=== PATIENT | male | born 1960 | race Caucasian/White ===

== ENCOUNTER 2019-03-20 11:23 | Emergency (ER) | payer OTHER ==
[~2019-03-20] VITALS: Ht 162.6 cm; Wt 105.2 kg
--- NOTE | 2019-03-20 11:23 | NUR ---
ARRIVAL PT ARRIVED VIA STRETCHER BY [facility] TO ER 5 C/O LEFT KNEE AND RIGHT HIP PAIN POST FALL. PT STATES WAS ON LADDER CUTTING WIRE ON ROOF WHEN LADDER SLIPPED, PT STATES "RODE LADDER DOWN" AND LANDED ON KNEES AT THE BOTTOM. SEE EMS REPORT. EDP NOTIFIED OF PT ARRIVAL.
[2019-03-20 11:40] VITALS: BP 145/82
[2019-03-20] MEDS ORDERED: DUONEB 0.5 MG-3 MG/3 ML SOLN IH ONE (11:54)
[2019-03-20] MEDS ORDERED: BOOSTRIX TDAP IM ONE ×2 (12:00→12:56)
--- NOTE | 2019-03-20 12:04 | ER.PDOC ---
General Chief Complaint: Trauma Stated Complaint: FALL Time seen by MD: 11:57 Source: patient Exam Limitations: no limitations History of Present Illness Initial Comments patient on ladder and fell, the ladder slid and he rode the ladder down and landed on the left knee and injured left forearm, both shoulders, neck low back and right hip and has mild headache, no loc no weakness or sensation change he has abrasion on the left forearm. Occurred: just prior to arrival Severity: moderate Injuries/Pain Location: head, neck, upper extremity, back, pelvis, lower extremity Context: Other Loss of Consciousness: No Loss of Consciousness Associated Symptoms: headache, neck pain Allergies: Coded Allergies: No Known Allergies (Unverified , 03/20/19) MEDS Unable to Obtain Active Prescriptions or Reported Meds Past Medical History Medical History: diabetes, hypertension Surgical History: knee, other Social History Smoking: chew Alcohol Use: heavy Drug Use: none Review of Systems Constitutional: denies fever Eyes: denies blindness Respiratory: denies cough, denies shortness of breath Cardiovascular: denies chest pain, denies palpitations, denies syncope Gastrointestinal: denies abdominal pain Genitourinary: denies hematuria, denies pain Musculoskeletal: back pain, neck pain Skin: denies rash Psychiatric/Neurological: headache; denies numbness, denies paresthesia Physical Exam General Appearance: No Apparent Distress Head: No Evidence of Injury Eyes: bilateral eye normal inspection, bilateral eye PERRL, bilateral eye EOMI Ears, Nose, Mouth, Throat: No Evidence of ENT Injury Neck: Normal Inspection, Tenderness Cardiovascular/Respiratory: Regular Rate, Rhythm, No M/R/G Gastrointestinal: Non Tender Back: Other Extremities: Other Neurologic/Psychiatric: store associate II-XII NML as Tested, No Motor/Sensory Deficits, Alert Comments pain left forearm, right hip, left knee, abrasion and hematoma left forearm, mild post cervical spine pain to palpation, no signs of head injury, bialt shoulder pain to palpation, neruo vasc tendons grossly intact. Mikki Coma Score Best Eye Response: (4) Open Spontaneously Best Verbal Response: (5) Oriented Best Motor Response: (6) Obeys Commands Results/Orders Results/Orders Orders - YUNIER MA MD Xr Forearm Lt (03/20/19 11:41) Xr Pelvis (03/20/19 11:41) Xr Lspine 2-3v (03/20/19 11:41) Xr Knee Lt 3v (03/20/19 11:41) Xr Shoulder Lt 2v (03/20/19 11:41) Xr Shoulder Rt 2v (03/20/19 11:41) Ct Cervical Spine (03/20/19 11:41) Ct Head Wo Contrast (03/20/19 11:41) Ipratropium/Albuterol Sulfate (Duoneb 0. (03/20/19 11:54) Diphth,Pertuss(Acell),Tet Vac (Boostrix (03/20/19 12:00) Crutch Usage Training (03/20/19 13:47) Vital Signs Date Time Temp Pulse Resp B/P (MAP) Pulse Ox O2 Delivery O2 Flow Rate FiO2 03/20/19 11:40 98.2 77 16 145/82 (103) 90 Room Air 98.2 03/20/19 11:40 16 03/20/19 11:23 98.2 77 18 90 Room Air 98.2 03/20/19 11:23 98.2 77 16 98.2 Administered Medications Medications (Trade) Dose Ordered Sig/Boyd Route PRN Reason Start Time Stop Time Status Last Admin Dose Admin Diphtheria/ Tetanus/Acell Pertussis (Boostrix Tdap) 0.5 ml ONCE ONCE IM 03/20/19 12:00 03/20/19 12:01 UNV 03/20/19 12:58 0.5 ML Departure Time of Disposition: 13:24 Disposition: 01 HOME, SELF-CARE Impression: Primary Impression: Patella fracture Additional Impressions: Shoulder sprain Back pain Head injury Neck pain Condition: Stable Patient Instructions: Abrasions, Head Injury, Adult, Patellar Fracture, Adult, Shoulder Pain, Soft Tissue Injury of the Neck Referrals: PCP,UNKNOWN (PCP) PRIMARY CARE PROVIDER YUNIER THOMAS MD, GIANG T MD Scripts Unable to Obtain Active Prescriptions or Reported Meds Duration or Time Spent with Pa: 15 Problem Qualifiers YUNIER MA MD March 20, 2019 12:03
--- NOTE | 2019-03-20 12:17 | DIREP ---
PROCEDURE:CT HEAD OR BRAIN W/O CONTRAST COMPARISON:None. INDICATIONS:fall and pain TECHNIQUE:CT images were created without intravenous contrast. FINDINGS: VENTRICLES:The ventricles are normal in size and configuration. CEREBRUM:Normal cerebral morphology with appropriate coy white matter differentiation. CEREBELLUM:Negative. BRAINSTEM:Negative. BASAL CISTERNS:Negative. HEMORRHAGE:No MASS LESION:No ACUTE INFARCT:No SKULL:Normal. SINUSES:Normal. OTHER:None CONCLUSION:Normal examination. Dictated by: Roberto Minaya M.D. on 03/20/2019 at 12:16 PM
--- NOTE | 2019-03-20 12:21 | DIREP ---
PROCEDURE:CT CERVICAL SPINE WITHOUT CONTRAST TECHNIQUE:Axial cuts were obtained through the cervical spine. The images were viewed at bone and soft tissue settings. Sagittal and coronal reconstructions are provided. COMPARISON:None. INDICATIONS:fall and pain FINDINGS: ALIGNMENT:Normal. VERTEBRAE:Normal. PARASPINAL AREA:Normal. OTHER:No additional findings. CERVICAL DISC LEVELS C2-C3:Normal. C3-C4:Normal. C4-C5:Left facet joint arthropathy. C5-C6:Decreased disc height. Bilateral uncovertebral joint arthropathy. C6-C7:Normal. C7-T1:Normal. CONCLUSION:No acute cervical spine abnormalities. Mild degenerative changes. Dictated by: Roberto Minaya M.D. on 03/20/2019 at 12:17 PM
--- NOTE | 2019-03-20 12:28 | NUR ---
RAD PT RETURNED FROM RADIOLOGY AT THIS TIME.
--- NOTE | 2019-03-20 12:34 | DIREP ---
PROCEDURE:XRAY KNEE 3 VIEWS-LT COMPARISON:None. INDICATIONS:pain FINDINGS: BONES:Nondisplaced fracture of the anterior patella. No other acute fractures. JOINTS:Severe narrowing of the medial compartment of the knee joint. Moderate narrowing of the patellofemoral joint with small marginal osteophytes present. SOFT TISSUES:Normal. OTHER:No additional findings. CONCLUSION:Nondisplaced fracture of the anterior left patella. DJD. Dictated by: Roberto Minaya M.D. on 03/20/2019 at 12:32 PM
--- NOTE | 2019-03-20 12:36 | DIREP ---
PROCEDURE:XRAY SHOULDER MIN 2 VWS-RT COMPARISON:None. INDICATIONS:fall FINDINGS: BONES:No fractures or other acute abnormalities. Surgical staple present in the humeral head. JOINTS:Narrowing of the acromioclavicular joint. SOFT TISSUES:Normal. OTHER:Normal. CONCLUSION:No acute right shoulder abnormalities. DJD of the acromioclavicular joint. Dictated by: Roberto Minaya M.D. on 03/20/2019 at 12:34 PM
--- NOTE | 2019-03-20 12:38 | DIREP ---
PROCEDURE:XRAY SHOULDER MIN 2 VWS-LT COMPARISON:None. INDICATIONS:fall FINDINGS: BONES:No fractures or other acute abnormalities. Surgical staple present in the humeral head. JOINTS:Narrowing of the acromioclavicular joint. SOFT TISSUES:Normal. OTHER:Normal. CONCLUSION:No acute left shoulder abnormalities. DJD of the acromioclavicular joint. Dictated by: Roberto Minaya M.D. on 03/20/2019 at 12:35 PM
[2019-03-20 12:40] VITALS: BP 141/87
--- NOTE | 2019-03-20 12:40 | DIREP ---
PROCEDURE:XRAY PELVIS 1-2 VWS COMPARISON:None. INDICATIONS:fall and pain FINDINGS: BONES:No fractures or other acute bony abnormalities. JOINTS:DJD of both hip joints. SOFT TISSUES:Normal. OTHER:Multiple surgical coils overlie the pelvis. CONCLUSION:No acute pelvis abnormalities. Dictated by: Roberto Minaya M.D. on 03/20/2019 at 12:38 PM
--- NOTE | 2019-03-20 12:43 | DIREP ---
PROCEDURE:XRAY FOREARM 2 VWS-LT COMPARISON:None. INDICATIONS:pain and fall off ladder FINDINGS: BONES:No fractures or other acute bony abnormalities. JOINTS:Normal. SOFT TISSUES:Swelling of the forearm soft tissues. Vascular calcifications present. OTHER:No additional findings. CONCLUSION:Soft tissue swelling. No left forearm fracture. Dictated by: Roberto Minaya M.D. on 03/20/2019 at 12:41 PM
--- NOTE | 2019-03-20 12:52 | DIREP ---
PROCEDURE:XRAY SPINE LUMBAR 2-3 VWS COMPARISON:None. INDICATIONS:fall and pain TECHNIQUE:AP, lateral, and coned down lateral views of the lumbar spine are provided. FINDINGS: ALIGNMENT:Normal. VERTEBRAE:Vertebral body heights are normal. DISK SPACES:Disc space narrowing and vacuum phenomenon at L5-S1. SPONDYLOLISTHESIS:Bilateral pars interarticularis defects of L5 with grade 2 spondylolisthesis of L5 on S1.. SACROILIAC JOINTS:Normal. OTHER:Normal. CONCLUSION:No acute lumbar spine abnormalities. Bilateral spondylolysis of L5 with grade 2 spondylolisthesis of L5 on S1 and L5-S1 DDD. Dictated by: Roberto Minaya M.D. on 03/20/2019 at 12:49 PM
[2019-03-20 13:40] VITALS: BP 138/75
[2019-03-20] MEDS ORDERED: TRIPLE ANTIBIOTIC OINTMENT TP ONE (13:50)
--- NOTE | 2019-03-20 14:00 | NUR ---
ABRASIONS ABRASIONS TO LEFT FOREARM AND ELBOW CLEANED, NEOSPORIN AND BANDAGE APPLIED.
[2019-03-20 14:06] VITALS: BP 131/78
--- NOTE | 2019-03-20 14:06 | NUR ---
KNEE IMMOBILIZER KNEE IMMOBILIZER PLACED ON LEFT LEG, CRUTCHES PROVIDED TO PT.
[2019-03-20 14:46] VITALS: BP 145/82
== END 2019-03-20 14:06 | disposition home or self-care (01) ==
LOC: ER 11:23 → EDBD 11:23 → ER 14:06
DX: S82.092A Other fracture of left patella, initial encounter for closed fracture (principal); S43.401A Unspecified sprain of right shoulder joint, initial encounter; S43.402A Unspecified sprain of left shoulder joint, initial encounter; S09.90XA Unspecified injury of head, initial encounter; S50.12XA Contusion of left forearm, initial encounter; I10 Essential (primary) hypertension; E11.9 Type 2 diabetes mellitus without complications; F17.220 Nicotine dependence, chewing tobacco, uncomplicated; W11.XXXA Fall on and from ladder, initial encounter; Y93.89 Activity, other specified; Y92.89 Other specified places as the place of occurrence of the external cause; Y99.8 Other external cause status
CPT/HCPCS: 29505; 70450; 72100; 72125; 72170; 73030 ×2; 73090; 73562; 90471; 90715; 99285; J7620

== ENCOUNTER → 2023-10-15 | Outpatient (CLI) | payer OTHER ==
[2023-10-15] MEDS: LEXISCAN IV ONE (10:19)
== END | disposition home or self-care (01) ==
LOC: RAD 08:59
PROVIDERS: ATTEND Internal Medicine Cardiovascular Disease
DX: I08.1 Rheumatic disorders of both mitral and tricuspid valves (principal); I50.32 Chronic diastolic (congestive) heart failure; R06.02 Shortness of breath; R07.9 Chest pain, unspecified; R06.09 Other forms of dyspnea
CPT/HCPCS: 78452; 93306; 93017; A9500